=== PATIENT | male | born 1970 | race American Indian/Alaskan Native ===

== ENCOUNTER 2020-12-30 10:53 | Emergency (ER) | payer BC ==
[2020-12-30 11:35] VITALS: BP 151/96
--- NOTE | 2020-12-30 11:37 | Emergency Department Report ---
ED Back Pain/Injury HPI - General Chief Complaint: Back Pain/Injury Stated Complaint: BACK PAIN Time Seen by Provider: 12/30/20 11:32 Source: patient Limitations: No Limitations - History of Present Illness MD Complaint: back pain Onset/Timin -: week(s) Similar Symptoms Previously: No Place: work Radiation: none Consistency: intermittent Improves With: supine, sitting upright Worsens With: movement, deep breaths/cough Associated Symptoms: denies: confusion, weakness, chest pain, cough, difficulty urinating, incontinence, constipation Treatments Prior to Arrival: other (none) - Related Data Previous Rx's Medication Instructions Recorded Last Taken Type Baclofen [Lioresal] 10 mg PO TID #21 tab 12/30/20 Unknown Rx Naproxen 500 mg PO BID #20 tablet 12/30/20 Unknown Rx Allergies Allergy/AdvReac Type Severity Reaction Status Date / Time No Known Allergies Allergy Verified 12/30/20 11:07 ED Review of Systems ROS: Stated complaint: BACK PAIN Other details as noted in HPI Comment: All other systems reviewed and negative ED Past Medical Hx - Past Medical History Previous Medical History?: No - Surgical History Past Surgical History?: No - Social History Smoking Status: Current Every Day Smoker Substance Use Type: Alcohol - Medications Home Medications: Home Medications Medication Instructions Recorded Confirmed Last Taken Type Baclofen [Lioresal] 10 mg PO TID #21 tab 12/30/20 Unknown Rx Naproxen 500 mg PO BID #20 tablet 12/30/20 Unknown Rx ED Physical Exam - General Limitations: No Limitations General appearance: alert, in no apparent distress - Head Head exam: Present: atraumatic, normocephalic - Eye Eye exam: Present: normal appearance - ENT ENT exam: Present: mucous membranes moist Critical care attestation.: If time is entered above; I have spent that time in minutes in the direct care of this critically ill patient, excluding procedure time. ED Disposition Clinical Impression: Back strain Disposition: DC-01 TO HOME OR SELFCARE Is pt being admited?: No Does the pt Need Aspirin: No Condition: Stable Instructions: Muscle Strain, [id number], Back Injury Prevention Additional Instructions: Please take pain medication and muscle relaxant as prescribed. Do not operate heavy machinery while taking muscle relaxant. Be sure to increase your water intake. Prescriptions: Baclofen [Lioresal] 10 mg PO TID #21 tab Naproxen 500 mg PO BID #20 tablet Referrals: Your, primary care provider. [Other] - 3-5 Days Forms: Work/School Release Form(ED)
[2020-12-30] MEDS ORDERED: KETOROLAC 30 MG/1 ML INJ IM ONE (11:38)
== END 2020-12-30 12:07 | disposition home or self-care (01) ==
LOC: ED 10:53
DX: S29.012A Strain of muscle and tendon of back wall of thorax, initial encounter (principal); F17.200 Nicotine dependence, unspecified, uncomplicated; Z79.899 Other long term (current) drug therapy; X58.XXXA Exposure to other specified factors, initial encounter; Y93.89 Activity, other specified; Y92.89 Other specified places as the place of occurrence of the external cause; Y99.8 Other external cause status
CPT/HCPCS: 96372; 99281; J1885

== ENCOUNTER 2021-01-19 11:50 | Emergency (ER) | payer BC ==
--- NOTE | 2021-01-19 12:00 | Event Note ---
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 Further treatment and workup at subsequent clinical providers discretion. Patient/guardian urged not to elope from the ED as their condition may be serious if not clinically assessed and managed. Initial orders include: labs, CXR, EKG
--- NOTE | 2021-01-19 12:36 | Emergency Department Report ---
ED Chest Pain HPI - General Chief Complaint: Chest Pain Stated Complaint: CP PUI?: No Time Seen by Provider: 01/19/21 11:56 Source: patient Mode of arrival: Ambulatory Limitations: No Limitations - History of Present Illness Initial Comments: Patient is a 50-year-old -[place] male that comes to the emergency room complaining of left-sided chest pain worse with movement. Patien denies any nausea vomiting or diaphoresis. Denies any diarrhea. Denies abdominal paiN. Patient ambulatory nontoxic and [id number] on arrival to [facility]. Pain is reproducible with movement. Patient denies taking any home medications at home. Patient requesting work note. MD Complaint: chest pain -: Gradual, days(s) Pain Location: left chest Quality: aching Consistency: intermittent Improves With: remaining still Worsens With: movement re: denies: nausea, vomting, diaphoresis Other Symptoms: denies: cough, fever, syncope, rash, acid taste in mouth, leg swelling, palpitations, burping Treatments Prior to Arrival: none - Related Data On Oral Contraceptives: No Previous Rx's Medication Instructions Recorded Last Taken Type hydroCHLOROthiazide [HCTZ] 25 mg PO QDAY #30 tablet 01/19/21 Unknown Rx Allergies Allergy/AdvReac Type Severity Reaction Status Date / Time No Known Allergies Allergy Verified 01/19/21 11:51 Heart Score - HEART Score History: Slightly suspicious EKG: Normal Age: 45-65 Risk factors: 1-2 risk factors Troponin: < normal limit HEART Score: 2 - EKG Read Time Time EKG Completed: 12:14 EKG Read Time: 12:14 - Critical Actions Critical Actions: 0-3 pts:0.9-1.7%risk of adverse cardiac event.Candidate for discharge ED Review of Systems ROS: Stated complaint: CP Other details as noted in HPI Comment: All other systems reviewed and negative ED Past Medical Hx - Past Medical History Previous Medical History?: Yes Hx Hypertension: Yes (no meds; states md took him off it) - Surgical History Past Surgical History?: No - Family History Family history: no significant - Social History Smoking Status: Current Every Day Smoker Substance Use Type: Alcohol - Medications Home Medications: Home Medications Medication Instructions Recorded Confirmed Last Taken Type hydroCHLOROthiazide [HCTZ] 25 mg PO QDAY #30 tablet 01/19/21 Unknown Rx ED Physical Exam - General Limitations: No Limitations General appearance: alert, in no apparent distress - Head Head exam: Present: atraumatic, normocephalic - Eye Eye exam: Present: normal appearance - ENT ENT exam: Present: mucous membranes moist - Neck Neck exam: Present: normal inspection - Respiratory Respiratory exam: Present: normal lung sounds bilaterally. Absent: respiratory distress - Cardiovascular Cardiovascular Exam: Present: regular rate, normal rhythm, other (Heart rate 90 on exam). Absent: systolic murmur, diastolic murmur, rubs, gallop - GI/Abdominal GI/Abdominal exam: Present: soft, normal bowel sounds - Rectal Rectal exam: Present: deferred - Extremities Exam Extremities exam: Present: normal inspection - Back Exam Back exam: Present: normal inspection - Neurological Exam Neurological exam: Present: alert, oriented X3 - Psychiatric Psychiatric exam: Present: normal affect, normal mood - Skin Skin exam: Present: warm, dry, intact, normal color. Absent: rash ED Course Vital Signs 01/19/21 01/19/21 01/19/21 11:54 13:36 13:38 Temperature 98.8 F Pulse Rate 103 H 83 91 H Respiratory 18 20 18 Rate Blood Pressure 194/106 Blood Pressure 181/100 [Left] O2 Sat by Pulse 100 100 100 Oximetry 01/19/21 01/19/21 01/19/21 13:40 13:45 14:01 Temperature Pulse Rate 91 H 83 81 Respiratory 14 19 Rate Blood Pressure 181/100 181/100 169/95 Blood Pressure [Left] O2 Sat by Pulse 98 98 Oximetry - Reevaluation(s) Reevaluation #1: 01/19/21 14:29 DENIES PAIN ON DC GITA score - Gita Score Age > 65: (0) No Aspirin use within the Past 7 Days: (0) No 3 or more CAD Risk Factors: (0) No 2 or more Angina events in past 24 hrs: (0) No Known CAD with more than 50% Stenosis: (0) No Elevated Cardiac Markers: (0) No ST Deviation Greater than 0.5mm: (0) No GITA Score: 0 ED Medical Decision Making - Lab Data Result diagrams: 01/19/21 12:17 01/19/21 12:17 - EKG Data EKG shows normal: sinus rhythm Rate: normal - EKG Data When compared to previous EKG there are: no significant change Interpretation: no acute changes - Radiology Data Radiology results: report reviewed, image reviewed nap - Medical Decision Making Labs 01/19/21 01/19/21 12:17 12:17 WBC 9.8 RBC 4.27 Hgb 14.3 Hct 41.0 MCV 96 H MCH 33 H MCHC 35 H RDW 13.0 L Plt Count 251 Lymph % (Auto) 23.5 [place] % (Auto) 9.2 H Eos % (Auto) 0.3 Baso % (Auto) 1.2 Lymph # (Auto) 2.3 [place] # (Auto) 0.9 H Eos # (Auto) 0.0 Baso # (Auto) 0.1 Seg Neutrophils % 65.8 Seg Neutrophils # 6.5 Sodium 140 Potassium 3.7 Chloride 100.4 Carbon Dioxide 22 Anion Gap 21 BUN 10 Creatinine 0.8 Estimated GFR > 60 BUN/Creatinine Ratio 13 Glucose 111 H Calcium 9.0 Total Bilirubin 0.70 AST 29 ALT 24 Alkaline Phosphatase 91 Troponin T < 0.010 Total Protein 7.4 Albumin 4.1 Albumin/Globulin Ratio 1.2 Vital Signs 01/19/21 01/19/21 01/19/21 11:54 13:38 13:40 Temperature 98.8 F Pulse Rate 103 H 91 H 91 H Respiratory 18 18 Rate Blood Pressure 194/106 181/100 Blood Pressure 181/100 [Left] O2 Sat by Pulse 100 100 Oximetry LABS NOTED TROP NOTED 12 LEAD NOTED- NAP BP NOTED- INITIALLY PT TOLD TRIAGE HE HAD NO HTN; IN ACC HE STATED HE HAS BEEN TOLD HE HAS HTN BUT HIS MD TOOK HIM OFF HIS MEDS. MEDICATED IN ACC. BP TRENDING DOWN. CHEST WALL PAIN REPRODUCABLE WITH MOVEMENT PT EDUCATED ON BP AND PREVENTION. DC HOME WITH DC PLAN OF CARE AND FOLLOW UP WITH PCP. HE VERBALIZES UNDERSTANDING OF PLAN OF CARE. - Differential Diagnosis acs/musculoskeletal pain/htn Critical care attestation.: If time is entered above; I have spent that time in minutes in the direct care of this critically ill patient, excluding procedure time. ED Disposition Clinical Impression: Elevated blood pressure reading, Non-adherence to medical treatment, Chest wall pain Disposition: DC-01 TO HOME OR SELFCARE Is pt being admited?: No Does the pt Need Aspirin: No Condition: Stable Instructions: Nonspecific Chest Pain, Adult, Preventing Hypertension Additional Instructions: TAKE MED ORDERED TODAY RECORD BLOOD PRESSURE WE DISCUSSED TO TAKE TO THE PCP REFERRAL BELOW DRINK A LOT OF WATER AVOID ALCOHOL AND DRUGS LOW FAT DIET SEE ATTACHED INSTRUCTIONS ON BP Prescriptions: hydroCHLOROthiazide [HCTZ] 25 mg PO QDAY #30 tablet Referrals: PRIMARY CAREMD [Primary Care Provider] - 3-5 Days CATHERINE KOHLER MD [Staff Physician] - 3-5 Days Time of Disposition: 13:54
[2021-01-19 12:47] LABS: Basophils # (Auto) 0.1 K/mm3 (0.0-0.1); Basophils % (Auto) 1.2 % (0.0-1.8); Eosinophils % (Auto) 0.3 % (0.0-4.3); Hemoglobin 14.3 gm/dl (11.8-15.2); Lymphocytes # (Auto) 2.3 K/mm3 (1.2-5.4); Lymphocytes % (Auto) 23.5 % (13.4-35.0); Mean Corpuscular HGB Conc 35 % (32-34); Mean Corpuscular Volume 96 fl (84-94); Monocytes # (Auto) 0.9 K/mm3 (0.0-0.8); Monocytes % (Auto) 9.2 % (0.0-7.3); Platelet Count 251 K/mm3 (140-440); Red Blood Count 4.27 M/mm3 (3.65-5.03)
[2021-01-19] MEDS ORDERED: cloNIDine 0.2 MG TAB PO ONE (12:53)
--- NOTE | 2021-01-19 13:13 | XRay Report ---
CHEST 2 VIEWS INDICATION / CLINICAL INFORMATION: CP. COMPARISON: None available. FINDINGS: SUPPORT DEVICES: None. HEART / MEDIASTINUM: No significant abnormality. LUNGS / PLEURA: No significant pulmonary or pleural abnormality. No pneumothorax. ADDITIONAL FINDINGS: No significant additional findings. IMPRESSION: No significant abnormality Signer Name: Stewart Lynch MD FACR Signed: 01/19/2021 12:34 PM Workstation Name: [id number]
[2021-01-19 13:49] LABS: Alanine Aminotransferase 24 units/L (7-56); Albumin 4.1 g/dL (3.9-5); BUN/Creatinine Ratio 13; Blood Urea Nitrogen 10 mg/dL (9-20); Hemolysis Index 14
[2021-01-19 14:07] VITALS: BP 169/95
--- NOTE | 2021-01-20 11:43 | Electrocardiograph Report ---
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
== END 2021-01-19 14:33 | disposition home or self-care (01) ==
LOC: ED 11:50
DX: R07.89 Other chest pain (principal); R03.0 Elevated blood-pressure reading, without diagnosis of hypertension; I10 Essential (primary) hypertension; F17.200 Nicotine dependence, unspecified, uncomplicated; Z79.899 Other long term (current) drug therapy; Z91.19 Patient's noncompliance with other medical treatment and regimen
CPT/HCPCS: 36415; 71046; 80053; 84484; 85025; 93005